=== PATIENT | female | born 1965 | race Two or more races ===

== ENCOUNTER → 2017-06-03 | Outpatient (CLI) | payer OTHER | END | disposition home or self-care (01) | LOC: LAB 12:25 | PROVIDERS: ATTEND Surgery | DX: Z02.1 Encounter for pre-employment examination (principal) | CPT/HCPCS: 36415; 86706 ==

== ENCOUNTER 2017-10-19 18:44 | Emergency (ER) | payer OTHER ==
[~2017-10-19] VITALS: Ht 167.6 cm; Wt 99.8 kg
[2017-10-19] MEDS ORDERED: MORPHINE SULFATE 10 MG/ML INJ 1ML SDV IV ONE (19:30)
[2017-10-19] MEDS ORDERED: ONDANSETRON HCL 4 MG/2 ML VIAL IV ONE (19:30)
[2017-10-19] MEDS ORDERED: ETOMIDATE (2MG/ML) 20ML VIAL IV ONE (20:00)
[2017-10-19 20:58] VITALS: BP 146/99
[2017-10-19] MEDS ORDERED: PROMETHAZINE HCL 25 MG/ML 1ML IV ONE (21:15)
== END 2017-10-19 22:17 | disposition home or self-care (01) ==
LOC: ER 18:48
DX: S82.851A Displaced trimalleolar fracture of right lower leg, initial encounter for closed fracture (principal); S93.04XA Dislocation of right ankle joint, initial encounter; W18.39XA Other fall on same level, initial encounter; Y93.89 Activity, other specified; Y99.8 Other external cause status; Y92.89 Other specified places as the place of occurrence of the external cause
CPT/HCPCS: 27818; 73590; 73600; 96374; 96375; 99152; 99291; J2270; J2405; J2550

== ENCOUNTER → 2017-10-27 | Outpatient (CLI) | payer OTHER ==
[~2017-10-27] MED LIST: HYDROmorphone HCL 2 MG/ML VL ONE; MIDAZOLAM HCL 1MG/1ML-2 ML VIAL ONE; PROPOFOL 10 MG/ML 20 ML IV ONE; fentaNYL CITRATE 100 MCG/2 ML VL ONE
== END | disposition home or self-care (01) ==
LOC: XYW 10:26
PROVIDERS: ATTEND Orthopaedic Surgery Adult Reconstructive Orthopaedic Surgery
DX: Z01.810 Encounter for preprocedural cardiovascular examination (principal); S82.891A Other fracture of right lower leg, initial encounter for closed fracture; I10 Essential (primary) hypertension; E11.9 Type 2 diabetes mellitus without complications; X58.XXXA Exposure to other specified factors, initial encounter; Y93.89 Activity, other specified; Y92.89 Other specified places as the place of occurrence of the external cause; Y99.8 Other external cause status
CPT/HCPCS: 93306

== ENCOUNTER 2017-11-01 07:35 | Day surgery (SDC) | payer OTHER ==
[2017-10-27 12:48] LABS: Basophils # (auto) 0.1 uL; Basophils % (auto) 0.7 % (0.0-2.0); Eosinophils # (auto) 0.1 uL; Eosinophils % (auto) 1.7 % (0.0-7.0); Hematocrit 42.8 % (36.0-46.0); Hemoglobin 14.5 g/dL (12.2-16.2); Lymphocytes # (auto) 1.8 uL; Lymphocytes % (auto) 21.9 % (10.0-50.0); Mean Corpuscular Hemoglobin 30.6 pg (28.0-32.0); Mean Corpuscular Hgb Conc. 33.9 g/dL (32.0-36.0); Mean Corpuscular Volume 90.2 fL (80.0-100.0); Monocytes # (auto) 0.7 uL; Monocytes % (auto) 8.6 % (0.0-12.0); Neutrophils # (auto) 5.4 uL; Neutrophils % (auto) 67.1 % (37.0-80.0); Nucleated Red Blood Cells % 0.1 %; Platelet Count (auto) 198 10^3/uL (140-450); Red Blood Cells 4.75 10^6/uL (4.0-5.20); Red Cell Distribution Width 13.3 % (11.8-14.3); White Blood Cell 8.1 10^3/uL (4.4-10.8)
[2017-10-27 12:54] LABS: Urine Bacteria NONE SEEN /hpf (None Seen); Urine Blood Negative /uL (Negative); Urine Mucus FEW (None Seen); Urine Specific Gravity 1.028 (1.001-1.035); Urine WBC 1 /hpf (0 - 5)
[2017-10-27 13:02] LABS: Albumin 3.6 g/dL (3.4-5.0); BUN/Creatinine Ratio 30.6; Calcium 9.3 mg/dL (8.5-10.1); Potassium 3.4 mmol/L (3.5-5.1)
[2017-10-27 13:04] LABS: INR 0.98 (0.9-1.15); Partial Thromboplastin Time 27.8 sec (22.64-33.71); Prothrombin Time 10.7 sec (9.37-12.3)
[2017-10-27 13:05] LABS: Bilirubin, Total 0.6 mg/dL (0.2-1.0); Total Protein 7.9 g/dL (6.4-8.2)
[~2017-11-01] VITALS: Ht 167.6 cm; Wt 93.0 kg
[2017-11-01] MEDS ORDERED: ceFAZolin 1GM/50ML 100 ML IV ONE (08:26)
[2017-11-01] MEDS ORDERED: BUPIVACAINE 0.25% INJ 50ML VIAL ONE (09:45)
[2017-11-01] MEDS ORDERED: ePHEDrine SULFATE 50 MG/ML AMP IV PRN (13:00)
[2017-11-01] MEDS ORDERED: hydrALAZINE HCL 20 MG/ML VL IV PRN (13:00)
[2017-11-01] MEDS ORDERED: ONDANSETRON HCL 4 MG/2 ML VIAL IV ONE (13:00)
[2017-11-01] MEDS ORDERED: HYDROmorphone HCL 2 MG/ML VL IV PRN (13:00)
[2017-11-01 14:30] VITALS: BP 164/83
== END 2017-11-01 14:40 | disposition home or self-care (01) ==
LOC: SUR 07:35
PROVIDERS: ATTEND Orthopaedic Surgery Adult Reconstructive Orthopaedic Surgery
DX: S82.54XA Nondisplaced fracture of medial malleolus of right tibia, initial encounter for closed fracture (principal); S82.64XA Nondisplaced fracture of lateral malleolus of right fibula, initial encounter for closed fracture; X58.XXXA Exposure to other specified factors, initial encounter; Y93.9 Activity, unspecified; Y92.9 Unspecified place or not applicable; Y99.9 Unspecified external cause status; D69.6 Thrombocytopenia, unspecified; E66.9 Obesity, unspecified; Z68.33 Body mass index [BMI] 33.0-33.9, adult
CPT/HCPCS: 27822; 36415; 73600; 76000; 80053; 81001; 85025; 85610; 85730; C1713; C1769; J0690; J2405; J3490

== ENCOUNTER → 2018-06-02 | Outpatient (CLI) | payer BC ==
[2018-06-02 11:32] LABS: Albumin 3.8 g/dL (3.4-5.0); BUN/Creatinine Ratio 22.1; Bilirubin, Total 0.9 mg/dL (0.2-1.0); Calcium 8.7 mg/dL (8.5-10.1); Potassium 4.3 mmol/L (3.5-5.1); Total Protein 7.8 g/dL (6.4-8.2)
[2018-06-02 11:34] LABS: Urine Bacteria NONE SEEN /hpf (None Seen); Urine Blood Negative /uL (Negative); Urine Specific Gravity 1.024 (1.001-1.035); Urine WBC 2 /hpf (0 - 5)
[2018-06-02 11:49] LABS: Basophils # (auto) 0 uL; Basophils % (auto) 0.8 % (0.0-2.0); Eosinophils # (auto) 0.1 uL; Eosinophils % (auto) 2.2 % (0.0-7.0); Hematocrit 43.1 % (36.0-46.0); Hemoglobin 14.5 g/dL (12.2-16.2); Lymphocytes # (auto) 1.5 uL; Lymphocytes % (auto) 31.7 % (10.0-50.0); Mean Corpuscular Hemoglobin 30.4 pg (28.0-32.0); Mean Corpuscular Hgb Conc. 33.7 g/dL (32.0-36.0); Mean Corpuscular Volume 90.1 fL (80.0-100.0); Monocytes # (auto) 0.4 uL; Monocytes % (auto) 8.6 % (0.0-12.0); Neutrophils # (auto) 2.7 uL; Neutrophils % (auto) 56.7 % (37.0-80.0); Nucleated Red Blood Cells % 0.2 %; Platelet Count (auto) 169 10^3/uL (140-450); Red Blood Cells 4.78 10^6/uL (4.0-5.20); Red Cell Distribution Width 13.5 % (11.8-14.3); White Blood Cell 4.8 10^3/uL (4.4-10.8)
== END | disposition home or self-care (01) ==
LOC: LAB 10:24
PROVIDERS: ATTEND Family Medicine
DX: I10 Essential (primary) hypertension (principal); E66.09 Other obesity due to excess calories; E11.9 Type 2 diabetes mellitus without complications
CPT/HCPCS: 36415; 80053; 80061; 81001; 82306; 82607; 83036; 84443; 85025

== ENCOUNTER → 2018-06-16 | Outpatient (CLI) | payer BC | END | disposition home or self-care (01) | LOC: LAB 13:43 | PROVIDERS: ATTEND Family Medicine | DX: E03.9 Hypothyroidism, unspecified (principal); R79.89 Other specified abnormal findings of blood chemistry | CPT/HCPCS: 36415; 84443 ==

== ENCOUNTER → 2018-09-02 | Outpatient (CLI) | payer BC | END | disposition home or self-care (01) | LOC: LAB 12:00 | PROVIDERS: ATTEND Family Medicine | DX: E03.9 Hypothyroidism, unspecified (principal) | CPT/HCPCS: 36415; 84443 ==

== ENCOUNTER → 2018-11-03 | Outpatient (CLI) | payer BC | END | disposition home or self-care (01) | LOC: LAB 13:34 | PROVIDERS: ATTEND Family Medicine | DX: E03.9 Hypothyroidism, unspecified (principal); R79.89 Other specified abnormal findings of blood chemistry | CPT/HCPCS: 36415; 84443 ==

== ENCOUNTER → 2019-01-16 | Outpatient (CLI) | payer BC | END | disposition home or self-care (01) | LOC: LAB 15:30 | PROVIDERS: ATTEND Family Medicine | DX: R79.89 Other specified abnormal findings of blood chemistry (principal); E03.9 Hypothyroidism, unspecified | CPT/HCPCS: 36415; 84443 ==

== ENCOUNTER → 2019-08-21 | Outpatient (CLI) | payer BC ==
[2019-08-21 10:30] LABS: Basophils # (auto) 0.1 uL; Eosinophils # (auto) 0.1 uL; Eosinophils % (auto) 1.4 % (0.0-7.0); Hematocrit 44.8 % (36.0-46.0); Hemoglobin 15.1 g/dL (12.2-16.2); Lymphocytes # (auto) 1.7 uL; Lymphocytes % (auto) 27.3 % (10.0-50.0); Mean Corpuscular Hemoglobin 30.8 pg (28.0-32.0); Mean Corpuscular Hgb Conc. 33.8 g/dL (32.0-36.0); Mean Corpuscular Volume 91.2 fL (80.0-100.0); Monocytes # (auto) 0.5 uL; Monocytes % (auto) 7.4 % (0.0-12.0); Neutrophils # (auto) 3.9 uL; Neutrophils % (auto) 62.9 % (37.0-80.0); Platelet Count (auto) 156 10^3/uL (140-450); Red Blood Cells 4.92 10^6/uL (4.0-5.20); Red Cell Distribution Width 13.5 % (11.8-14.3); White Blood Cell 6.3 10^3/uL (4.4-10.8)
[2019-08-21 10:48] LABS: Urine Bacteria NONE SEEN /hpf (None Seen); Urine Blood Negative /uL (Negative); Urine Mucus FEW (None Seen); Urine Specific Gravity 1.018 (1.001-1.035); Urine WBC 9 /hpf (0 - 5)
[2019-08-21 10:55] LABS: Urine Hyaline Cast FEW /lpf (0 - 2)
[2019-08-21 10:59] LABS: Albumin 3.5 g/dL (3.4-5.0); BUN/Creatinine Ratio 19.3; Calcium 8.6 mg/dL (8.5-10.1); Potassium 3.7 mmol/L (3.5-5.1)
[2019-08-21 11:02] LABS: Bilirubin, Total 0.7 mg/dL (0.2-1.0); Total Protein 7.8 g/dL (6.4-8.2)
== END | disposition home or self-care (01) ==
LOC: LAB 10:06
PROVIDERS: ATTEND Family Medicine
DX: I10 Essential (primary) hypertension (principal); E55.9 Vitamin D deficiency, unspecified; E03.9 Hypothyroidism, unspecified; E66.01 Morbid (severe) obesity due to excess calories
CPT/HCPCS: 36415; 80053; 80061; 81001; 83036; 84443; 85025

== ENCOUNTER → 2019-10-17 | Outpatient (CLI) | payer BC ==
[2019-10-17 10:21] LABS: Albumin 3.6 g/dL (3.4-5.0); Calcium 8.9 mg/dL (8.5-10.1); Potassium 3.7 mmol/L (3.5-5.1)
[2019-10-17 10:29] LABS: BUN/Creatinine Ratio 15.1; Bilirubin, Total 0.8 mg/dL (0.2-1.0); Total Protein 7.6 g/dL (6.4-8.2)
== END | disposition home or self-care (01) ==
LOC: LAB 09:44
PROVIDERS: ATTEND Family Medicine
DX: E78.49 Other hyperlipidemia (principal); I10 Essential (primary) hypertension; E11.9 Type 2 diabetes mellitus without complications; E03.9 Hypothyroidism, unspecified; R79.89 Other specified abnormal findings of blood chemistry
CPT/HCPCS: 36415; 80053; 80061; 83036; 84443

== ENCOUNTER → 2020-06-20 | Outpatient (CLI) | payer BC ==
[2020-06-20 10:18] LABS: Basophils # (auto) 0 10 ^3/uL (0-0.2); Basophils % (auto) 0.7 % (0.0-2.0); Eosinophils # (auto) 0.2 10 ^3/uL (0-0.8); Eosinophils % (auto) 3.2 % (0.0-7.0); Hematocrit 44.7 % (36.0-46.0); Hemoglobin 14.6 g/dL (12.2-16.2); Lymphocytes # (auto) 1.8 10 ^3/uL (0.4-5.4); Lymphocytes % (auto) 27.9 % (10.0-50.0); Mean Corpuscular Hgb Conc. 32.6 g/dL (32.0-36.0); Mean Corpuscular Volume 91.9 fL (80.0-100.0); Monocytes # (auto) 0.5 10 ^3/uL (0-1.3); Monocytes % (auto) 7.8 % (0.0-12.0); Neutrophils % (auto) 60.4 % (37.0-80.0); Platelet Count (auto) 167 10^3/uL (140-450); Red Blood Cells 4.86 10^6/uL (4.0-5.20); Red Cell Distribution Width 13.7 % (11.8-14.3); White Blood Cell 6.6 10^3/uL (4.4-10.8)
[2020-06-20 10:41] LABS: Urine Bacteria NONE SEEN /hpf (None Seen); Urine Blood 2+ /uL (Negative); Urine Mucus FEW (None Seen); Urine Specific Gravity 1.029 (1.001-1.035); Urine WBC 2 /hpf (0 - 5)
[2020-06-20 18:03] LABS: Potassium 3.9 mmol/L (3.5-5.1)
[2020-06-20 18:26] LABS: Albumin 3.8 g/dL (3.4-5.0); BUN/Creatinine Ratio 17.6; Bilirubin, Total 0.7 mg/dL (0.2-1.0); Calcium 9.1 mg/dL (8.5-10.1); Total Protein 7.4 g/dL (6.4-8.2)
== END | disposition home or self-care (01) ==
LOC: LAB 09:53
PROVIDERS: ATTEND Family Medicine
DX: I10 Essential (primary) hypertension (principal); E11.9 Type 2 diabetes mellitus without complications; E03.9 Hypothyroidism, unspecified; E66.01 Morbid (severe) obesity due to excess calories
CPT/HCPCS: 36415; 80053; 80061; 81001; 82043; 82607; 84443; 85025

== ENCOUNTER → 2021-02-13 | Outpatient (CLI) | payer BC ==
[2021-02-13 10:33] LABS: Basophils # (auto) 0 10 ^3/uL (0-0.2); Basophils % (auto) 0.7 % (0.0-2.0); Eosinophils # (auto) 0.2 10 ^3/uL (0-0.8); Eosinophils % (auto) 3.2 % (0.0-7.0); Hematocrit 42.8 % (36.0-46.0); Hemoglobin 15.1 g/dL (12.2-16.2); Lymphocytes # (auto) 2.1 10 ^3/uL (0.4-5.4); Mean Corpuscular Hemoglobin 31.8 pg (28.0-32.0); Mean Corpuscular Hgb Conc. 35.2 g/dL (32.0-36.0); Mean Corpuscular Volume 90.3 fL (80.0-100.0); Monocytes # (auto) 0.6 10 ^3/uL (0-1.3); Monocytes % (auto) 7.8 % (0.0-12.0); Neutrophils # (auto) 4.3 10 ^3/uL (1.6-8.6); Neutrophils % (auto) 59.3 % (37.0-80.0); Nucleated Red Blood Cells % 0.1 %; Platelet Count (auto) 161 10^3/uL (140-450); Red Blood Cells 4.74 10^6/uL (4.0-5.20); Red Cell Distribution Width 13.1 % (11.8-14.3); White Blood Cell 7.3 10^3/uL (4.4-10.8)
[2021-02-13 11:22] LABS: Urine Bacteria FEW /hpf (None Seen); Urine Blood Negative /uL (Negative); Urine Specific Gravity 1.014 (1.001-1.035); Urine WBC 1 /hpf (0 - 5)
[2021-02-13 11:36] LABS: Albumin 3.8 g/dL (3.4-5.0); BUN/Creatinine Ratio 22.5; Calcium 9.1 mg/dL (8.5-10.1); Total Protein 7.9 g/dL (6.4-8.2)
== END | disposition home or self-care (01) ==
LOC: LAB 09:55
PROVIDERS: ATTEND Family Medicine
DX: E11.9 Type 2 diabetes mellitus without complications (principal); E03.9 Hypothyroidism, unspecified; I10 Essential (primary) hypertension; E66.01 Morbid (severe) obesity due to excess calories
CPT/HCPCS: 36415; 80053; 80061; 81001; 82043; 82306; 83036; 84443; 85025

== ENCOUNTER → 2021-03-27 | Outpatient (CLI) | payer BC | END | disposition home or self-care (01) | LOC: LAB 09:02 | PROVIDERS: ATTEND Family Medicine | DX: E11.9 Type 2 diabetes mellitus without complications (principal); E66.01 Morbid (severe) obesity due to excess calories; E03.9 Hypothyroidism, unspecified; R79.89 Other specified abnormal findings of blood chemistry | CPT/HCPCS: 36415; 83036; 84443 ==

== ENCOUNTER → 2021-10-27 | Outpatient (CLI) | payer BC ==
[2021-10-27 11:11] LABS: Basophils # (auto) 0 10 ^3/uL (0-0.2); Basophils % (auto) 0.5 % (0.0-2.0); Eosinophils # (auto) 0.1 10 ^3/uL (0-0.8); Eosinophils % (auto) 1.8 % (0.0-7.0); Hematocrit 41.5 % (36.0-46.0); Lymphocytes # (auto) 2.1 10 ^3/uL (0.4-5.4); Lymphocytes % (auto) 30.3 % (10.0-50.0); Mean Corpuscular Hemoglobin 30.2 pg (28.0-32.0); Mean Corpuscular Hgb Conc. 33.8 g/dL (32.0-36.0); Mean Corpuscular Volume 89.3 fL (80.0-100.0); Monocytes # (auto) 0.4 10 ^3/uL (0-1.3); Monocytes % (auto) 5.6 % (0.0-12.0); Neutrophils # (auto) 4.2 10 ^3/uL (1.6-8.6); Neutrophils % (auto) 61.8 % (37.0-80.0); Nucleated Red Blood Cells % 0.1 %; Red Blood Cells 4.65 10^6/uL (4.0-5.20); Red Cell Distribution Width 12.9 % (11.8-14.3); White Blood Cell 6.8 10^3/uL (4.4-10.8)
[2021-10-27 11:45] LABS: Potassium 3.7 mmol/L (3.5-5.1)
[2021-10-27 12:01] LABS: Albumin 3.7 g/dL (3.4-5.0); BUN/Creatinine Ratio 19.7; Bilirubin, Total 0.5 mg/dL (0.2-1.0); Calcium 8.9 mg/dL (8.5-10.1); Total Protein 7.5 g/dL (6.4-8.2)
== END | disposition home or self-care (01) ==
LOC: LAB 10:10
PROVIDERS: ATTEND Student in an Organized Health Care Education/Training Program
DX: E11.9 Type 2 diabetes mellitus without complications (principal); I10 Essential (primary) hypertension; E66.01 Morbid (severe) obesity due to excess calories
CPT/HCPCS: 36415; 80053; 80061; 83036; 84443; 85025

== ENCOUNTER → 2022-02-26 | Outpatient (CLI) | payer BC | END | disposition home or self-care (01) | LOC: LAB 08:39 | PROVIDERS: ATTEND Student in an Organized Health Care Education/Training Program | DX: E11.9 Type 2 diabetes mellitus without complications (principal) | CPT/HCPCS: 36415; 83036 ==

== ENCOUNTER → 2022-12-24 | Outpatient (CLI) | payer BC ==
[2022-12-24 10:01] LABS: Basophils # (auto) 0 10 ^3/uL (0-0.2); Basophils % (auto) 0.6 % (0.0-2.0); Eosinophils # (auto) 0.1 10 ^3/uL (0-0.8); Eosinophils % (auto) 1.7 % (0.0-7.0); Hematocrit 41.1 % (36.0-46.0); Hemoglobin 14.1 g/dL (12.2-16.2); Lymphocytes # (auto) 2.1 10 ^3/uL (0.4-5.4); Lymphocytes % (auto) 32.8 % (10.0-50.0); Mean Corpuscular Hemoglobin 29.6 pg (28.0-32.0); Mean Corpuscular Hgb Conc. 34.3 g/dL (32.0-36.0); Mean Corpuscular Volume 86.2 fL (80.0-100.0); Monocytes # (auto) 0.5 10 ^3/uL (0-1.3); Monocytes % (auto) 7.7 % (0.0-12.0); Neutrophils # (auto) 3.7 10 ^3/uL (1.6-8.6); Neutrophils % (auto) 57.2 % (37.0-80.0); Red Blood Cells 4.77 10^6/uL (4.0-5.20); Red Cell Distribution Width 13.8 % (11.8-14.3); White Blood Cell 6.4 10^3/uL (4.4-10.8)
[2022-12-24 10:33] LABS: Albumin 3.7 g/dL (3.4-5.0); Calcium 9.1 mg/dL (8.5-10.1); Potassium 3.6 mmol/L (3.5-5.1)
[2022-12-24 10:39] LABS: BUN/Creatinine Ratio 20.8 (10.0-20.0); Bilirubin, Total 0.7 mg/dL (0.2-1.0); Total Protein 7.4 g/dL (6.4-8.2)
[2022-12-24 11:04] LABS: Micro Albumin 67.9 mg/L (0-30.0)
== END | disposition home or self-care (01) ==
LOC: LAB 09:29
PROVIDERS: ATTEND Student in an Organized Health Care Education/Training Program
DX: Z12.11 Encounter for screening for malignant neoplasm of colon (principal); I10 Essential (primary) hypertension; E11.9 Type 2 diabetes mellitus without complications; E78.1 Pure hyperglyceridemia
CPT/HCPCS: 36415; 80053; 80061; 82043; 82570; 83036; 85025

== ENCOUNTER → 2022-12-31 | Outpatient (CLI) | payer BC | END | disposition home or self-care (01) | LOC: LAB 11:19 | PROVIDERS: ATTEND Student in an Organized Health Care Education/Training Program | DX: Z12.11 Encounter for screening for malignant neoplasm of colon (principal); I10 Essential (primary) hypertension; E11.9 Type 2 diabetes mellitus without complications; E78.1 Pure hyperglyceridemia | CPT/HCPCS: 82274 ==

== ENCOUNTER → 2023-11-30 | Outpatient (CLI) | payer BC ==
[2023-11-30 10:03] LABS: Basophils # (auto) 0 10 ^3/uL (0-0.2); Basophils % (auto) 0.6 % (0.0-2.0); Eosinophils # (auto) 0.1 10 ^3/uL (0-0.8); Eosinophils % (auto) 1.5 % (0.0-7.0); Hematocrit 40.5 % (36.0-46.0); Hemoglobin 13.5 g/dL (12.2-16.2); Lymphocytes # (auto) 1.9 10 ^3/uL (0.4-5.4); Lymphocytes % (auto) 26.1 % (10.0-50.0); Mean Corpuscular Hemoglobin 28.8 pg (28.0-32.0); Mean Corpuscular Hgb Conc. 33.4 g/dL (32.0-36.0); Mean Corpuscular Volume 86.2 fL (80.0-100.0); Monocytes # (auto) 0.5 10 ^3/uL (0-1.3); Monocytes % (auto) 7.4 % (0.0-12.0); Neutrophils # (auto) 4.7 10 ^3/uL (1.6-8.6); Neutrophils % (auto) 64.4 % (37.0-80.0); Nucleated Red Blood Cells % 0.1 %; Red Cell Distribution Width 15.3 % (11.8-14.3); White Blood Cell 7.3 10^3/uL (4.4-10.8)
[2023-11-30 10:23] LABS: Creatinine, Urine 40.11 mg/dL (30.0-125.0)
[2023-11-30 10:29] LABS: Alanine Aminotransferase 26 U/L (7-40); Albumin 4.6 g/dL (3.2-4.8); Alkaline Phosphatase 93 U/L (46-116); Anion Gap 9 (5-15); Aspartate Aminotransferase 22 U/L (13-40); BUN/Creatinine Ratio 13.2 (10.0-20.0); Bilirubin, Total 0.8 mg/dL (0.2-1.0); Blood Urea Nitrogen 10 mg/dL (9-23); Calcium 9.8 mg/dL (8.5-10.1); Carbon Dioxide 27 mmol/L (20-30); Chloride 102 mmol/L (98-107); Cholesterol 105 mg/dL (< 200); Glucose 153 mg/dL (74-106); HDL Cholesterol 43 mg/dL (40-59); LDL Cholesterol 51 mg/dL (< 100); Potassium 4.3 mmol/L (3.5-5.1); Sodium 138 mmol/L (136-145); Total Protein 7.4 g/dL (5.7-8.2); Triglycerides 112 mg/dL (< 150)
== END | disposition home or self-care (01) ==
LOC: LAB 09:24
PROVIDERS: ATTEND Student in an Organized Health Care Education/Training Program
DX: Z12.11 Encounter for screening for malignant neoplasm of colon (principal); E11.9 Type 2 diabetes mellitus without complications; I10 Essential (primary) hypertension; E78.5 Hyperlipidemia, unspecified; E66.01 Morbid (severe) obesity due to excess calories; E03.9 Hypothyroidism, unspecified
CPT/HCPCS: 36415; 80053; 80061; 82043; 82570; 83036; 84443; 85025

== ENCOUNTER → 2024-11-09 | Outpatient (CLI) | payer BC ==
[2024-11-09 11:15] LABS: Basophils # (auto) 0.1 10 ^3/uL (0-0.2); Basophils % (auto) 0.8 % (0.0-2.0); Eosinophils # (auto) 0.2 10 ^3/uL (0-0.8); Eosinophils % (auto) 2.4 % (0.0-7.0); Hemoglobin 13.7 g/dL (12.2-16.2); Lymphocytes # (auto) 1.9 10 ^3/uL (0.4-5.4); Lymphocytes % (auto) 26.8 % (10.0-50.0); Mean Corpuscular Hemoglobin 28.6 pg (28.0-32.0); Mean Corpuscular Hgb Conc. 33.4 g/dL (32.0-36.0); Mean Corpuscular Volume 85.7 fL (80.0-100.0); Monocytes # (auto) 0.5 10 ^3/uL (0-1.3); Monocytes % (auto) 7.3 % (0.0-12.0); Neutrophils # (auto) 4.5 10 ^3/uL (1.6-8.6); Neutrophils % (auto) 62.7 % (37.0-80.0); Nucleated Red Blood Cells % 0.1 %; Platelet Count (auto) 171 10^3/uL (140-450); Red Blood Cells 4.78 10^6/uL (4.0-5.20); Red Cell Distribution Width 15.8 % (11.8-14.3); White Blood Cell 7.1 10^3/uL (4.4-10.8)
[2024-11-09 11:29] LABS: Urine Bacteria FEW /hpf (None Seen); Urine Blood Negative /uL (Negative); Urine Clarity Clear (Clear); Urine Color Colorless (Yellow); Urine Protein, UAD Negative (Negative); Urine Specific Gravity 1.009 (1.001-1.035); Urine Squamous Epithelial Cell FEW /hpf (<5); Urine Urobilinogen Normal (Negative); Urine WBC 1 /HPF (0-5)
[2024-11-09 11:44] LABS: Alanine Aminotransferase 12 U/L (7-40); Albumin 4.5 g/dL (3.2-4.8); Alkaline Phosphatase 98 U/L (46-116); Anion Gap 10 (5-15); Aspartate Aminotransferase 15 U/L (13-40); BUN/Creatinine Ratio 16.7 (10.0-20.0); Blood Urea Nitrogen 15 mg/dL (9-23); Calcium 9.8 mg/dL (8.7-10.4); Carbon Dioxide 27 mmol/L (20-31); Chloride 99 mmol/L (98-107); Cholesterol 102 mg/dL (< 200); LDL Cholesterol 47 mg/dL (< 100); Potassium 4.4 mmol/L (3.5-5.1); Sodium 136 mmol/L (136-145)
[2024-11-09 11:45] LABS: Bilirubin, Total 0.6 mg/dL (0.2-1.0); Total Protein 6.9 g/dL (5.7-8.2)
[2024-11-09 11:50] LABS: Glucose 170 mg/dL (74-106); HDL Cholesterol 38 mg/dL (40-59); Triglycerides 178 mg/dL (< 150)
== END | disposition home or self-care (01) ==
LOC: LAB 09:56
PROVIDERS: ATTEND Nurse Practitioner
DX: I10 Essential (primary) hypertension (principal); E11.29 Type 2 diabetes mellitus with other diabetic kidney complication; E78.5 Hyperlipidemia, unspecified
CPT/HCPCS: 36415; 80053; 80061; 81001; 83036; 84443; 85025; 87086

== ENCOUNTER → 2025-02-14 | Outpatient (CLI) | payer BC ==
[2025-02-14 11:07] LABS: Alanine Aminotransferase 27 U/L (7-40); Albumin 4.6 g/dL (3.2-4.8); Alkaline Phosphatase 95 U/L (46-116); Anion Gap 11 (5-15); Aspartate Aminotransferase 23 U/L (13-40); BUN/Creatinine Ratio 15.7 (10.0-20.0); Blood Urea Nitrogen 13 mg/dL (9-23); Calcium 10.2 mg/dL (8.7-10.4); Carbon Dioxide 24 mmol/L (20-31); Chloride 101 mmol/L (98-107); Cholesterol 115 mg/dL (< 200); HDL Cholesterol 42 mg/dL (40-59); LDL Cholesterol 58 mg/dL (< 100); Potassium 4.3 mmol/L (3.5-5.1); Sodium 136 mmol/L (136-145); Total Protein 7.5 g/dL (5.7-8.2); Triglycerides 149 mg/dL (< 150)
[2025-02-14 11:08] LABS: Bilirubin, Total 0.6 mg/dL (0.2-1.0)
[2025-02-14 11:09] LABS: Glucose 171 mg/dL (74-106)
[2025-02-14 11:11] LABS: Creatinine, Urine 44.75 mg/dL (30.0-125.0)
== END | disposition home or self-care (01) ==
LOC: LAB 10:12
PROVIDERS: ATTEND Nurse Practitioner
DX: I10 Essential (primary) hypertension (principal); E11.9 Type 2 diabetes mellitus without complications; Z12.11 Encounter for screening for malignant neoplasm of colon
CPT/HCPCS: 36415; 80053; 80061; 82043; 82570; 83036

== ENCOUNTER → 2025-02-20 | Outpatient (CLI) | payer BC | END | disposition home or self-care (01) | LOC: LAB 12:53 | PROVIDERS: ATTEND Nurse Practitioner | DX: E11.29 Type 2 diabetes mellitus with other diabetic kidney complication (principal); N28.9 Disorder of kidney and ureter, unspecified | CPT/HCPCS: 82274 ==

== ENCOUNTER → 2025-07-17 | Outpatient (CLI) | payer BC ==
[2025-07-17 11:02] LABS: Alanine Aminotransferase 28 U/L (7-40); Albumin 4.3 g/dL (3.2-4.8); Alkaline Phosphatase 82 U/L (46-116); Anion Gap 11 (5-15); BUN/Creatinine Ratio 15.0 (10.0-20.0); Blood Urea Nitrogen 12 mg/dL (9-23); Calcium 9.1 mg/dL (8.7-10.4); Carbon Dioxide 25 mmol/L (20-31); Chloride 99 mmol/L (98-107); Potassium 4.3 mmol/L (3.5-5.1); Total Protein 7.0 g/dL (5.7-8.2)
[2025-07-17 11:03] LABS: Bilirubin, Total 0.7 mg/dL (0.2-1.0); Glucose 168 mg/dL (74-106); Sodium 135 mmol/L (136-145)
== END | disposition home or self-care (01) ==
LOC: LAB 10:06
PROVIDERS: ATTEND Nurse Practitioner
DX: E11.9 Type 2 diabetes mellitus without complications (principal)
CPT/HCPCS: 36415; 80053; 83036